=== PATIENT | female | born 1990 | race Caucasian/White ===

== ENCOUNTER 2016-12-16 20:45 | Outpatient (CLI) | payer OTHER ==
[~2016-12-16] VITALS: Ht 160 cm; Wt 79.8 kg
[2016-12-16 20:55] VITALS: BP 111/67
[2016-12-16] MEDS ORDERED: RANI15TA PO (20:58)
[2017-01-04] MEDS ORDERED: ACET50TA PO (14:33)
[2017-01-04] MEDS ORDERED: IBUP-1114 PO (14:33)
[2017-01-04] MEDS ORDERED: PRENTAB9 PO (14:33)
== END 2016-12-16 21:42 | disposition home or self-care (01) ==
LOC: M LDO 20:45
PROVIDERS: ATTEND Obstetrics & Gynecology
DX: O26.893 Other specified pregnancy related conditions, third trimester (principal); N89.8 Other specified noninflammatory disorders of vagina; Z3A.36 36 weeks gestation of pregnancy

== ENCOUNTER 2017-01-24 13:41 | Emergency (ER) | payer OTHER ==
[~2017-01-24] VITALS: Ht 162.6 cm; Wt 72.1 kg
[~2017-01-24 13:41] MED LIST: ACET50TA PO; IBUP-1114 PO; PRENTAB9 PO; RANI15TA PO
[2017-01-24] MEDS ORDERED: ZITHTAB PO (14:30)
[2017-01-24] MEDS ORDERED: ALBU17IN2 INH (14:37)
[2017-01-24 15:00] VITALS: BP 132/68
== END 2017-01-24 15:00 | disposition home or self-care (01) ==
LOC: M ED 13:41
DX: J02.9 Acute pharyngitis, unspecified (principal); Z20.818 Contact with and (suspected) exposure to other bacterial communicable diseases; F17.200 Nicotine dependence, unspecified, uncomplicated